=== PATIENT | male | born 1995 | race Hispanic/Latino ===

== ENCOUNTER 2018-11-09 03:53 | Emergency (ER) | payer OTHER ==
[~2018-11-09] VITALS: Ht 180.3 cm; Wt 81.8 kg
[2018-11-09] MEDS ORDERED: FLUORESCEIN OPHTH 1 MG STRIP OD ONE (06:00)
[2018-11-09] MEDS ORDERED: TETRACAINE 0.5% OPHTH SOLN 4ML OD ONE (06:00)
--- NOTE | 2018-11-09 07:54 | REPVR ---
EXAM: CT Cervical Spine Without Contrast EXAM DATE/TIME: 11/09/2018 4:22 AM CLINICAL HISTORY: 22 years old, male; Injury or trauma; Fall; Initial encounter; Concussion /head injury TECHNIQUE: Imaging protocol: Computed tomography images of the cervical spine without contrast. Coronal and sagittal reformatted images were created and reviewed. Radiation optimization: All CT scans at this facility use at least one of these dose optimization techniques: automated exposure control; mA and/or kV adjustment per patient size (includes targeted exams where dose is matched to clinical indication); or iterative reconstruction. COMPARISON: No relevant prior studies available. FINDINGS: Vertebrae: No acute fracture. Normal alignment. Discs/Spinal canal/Neural foramina: No spinal stenosis. No neural foraminal narrowing. Soft tissues: Unremarkable. Sinuses: Fluid and retention cyst in the left sphenoid sinus. Lungs: Lung apices are normal. IMPRESSION: No acute fractures or spondylolisthesis. Electronically signed by: Liban Martin On 11/09/2018 07:54:03 AM
--- NOTE | 2018-11-09 08:03 | REPVR ---
EXAM: CT Head Without Contrast EXAM DATE/TIME: 11/09/2018 4:22 AM CLINICAL HISTORY: 22 years old, male; Injury or trauma; Fall; Initial encounter; Concussion / head injury TECHNIQUE: Imaging protocol: Computed tomography images of the head without contrast. Radiation optimization: All CT scans at this facility use at least one of these dose optimization techniques: automated exposure control; mA and/or kV adjustment per patient size (includes targeted exams where dose is matched to clinical indication); or iterative reconstruction. COMPARISON: No relevant prior studies available. FINDINGS: Brain: Normal. No hemorrhage. Unremarkable white matter. No mass effect. Ventricles: Normal. No ventriculomegaly. Bones/joints: Unremarkable. No acute fracture. Sinuses: Fluid and retention cyst in the left sphenoid sinus. Mastoid air cells: Visualized mastoid air cells are well aerated. No mastoid effusion. Soft tissues: Unremarkable. IMPRESSION: No acute intracranial pathology. Electronically signed by: Liban Martin On 11/09/2018 08:03:01 AM
--- NOTE | 2018-11-09 08:05 | REPVR ---
EXAM: CT Maxillofacial Without Contrast EXAM DATE/TIME: 11/09/2018 4:22 AM CLINICAL HISTORY: 22 years old, male; Injury or trauma; Fall; Initial encounter; Concussion /head injury; Loss of consciousness not known; Patient HX: ? Eye injury TECHNIQUE: Imaging protocol: Computed tomography images of the face without contrast. Coronal and sagittal reformatted images were created and reviewed. Radiation optimization: All CT scans at this facility use at least one of these dose optimization techniques: automated exposure control; mA and/or kV adjustment per patient size (includes targeted exams where dose is matched to clinical indication); or iterative reconstruction. COMPARISON: No relevant prior studies available. FINDINGS: Orbits: No acute intraorbital abnormality. Globes are unremarkable. Sinuses: Retention cyst in the left sphenoid and right ethmoid sinuses. Bones/joints: No acute fracture. Soft tissues: Unremarkable. IMPRESSION: No acute fractures. Electronically signed by: Liban Martin On 11/09/2018 08:05:17 AM
[2018-11-09 08:20] VITALS: BP 99/59
== END 2018-11-09 08:21 | disposition home or self-care (01) ==
LOC: M ED 03:53
DX: S05.8X1A Other injuries of right eye and orbit, initial encounter (principal); W01.198A Fall on same level from slipping, tripping and stumbling with subsequent striking against other object, initial encounter; Y92.821 Forest as the place of occurrence of the external cause; Y99.1 Military activity